=== PATIENT | male | born 1965 | race Caucasian/White ===

== ENCOUNTER 2016-08-28 10:45 | Emergency (ER) | payer BC ==
[2016-08-28 10:54] VITALS: BP 122/95
[2016-08-28] MEDS ORDERED: ALBUTEROL SULFATE/IPRATROPIUM 3 ML NEBU IH ONE ×2 (11:23→11:36)
--- NOTE | 2016-08-28 11:30 | ERNOTE ---
Date of Service: 08/28/16 Time Seen by Provider: 08/28/16 11:13 Stated Complaint: COUGH Presenting Symptoms:: cough Source: patient, family, RN notes reviewed Exam Limitations: no limitations Immunizations: IMMUNIZATION HX Immunizations Up to Date No History of Influenza Vaccine More Information Required Hx Pneumococcal Vaccination More Information Required Allergies/Adverse Reactions: Allergies No Known Allergies Allergy (Unverified 04/05/14 14:45) Home Medications: HOME MEDICATIONS Aspirin [Aspirin Enteric Coated] 81 mg PO DAILY 04/05/14 [Last Taken Unknown] Atorvastatin Calcium [Lipitor] 20 mg PO DAILY 04/05/14 [Last Taken Unknown] Glucosamine HCl 500 mg PO DAILY 04/05/14 [Last Taken Unknown] Lisinopril/Hydrochlorothiazide [Lisinopril-Hctz 20-12.5 mg Tab] 1 each PO DAILY 04/05/14 [Last Taken Unknown] Zolpidem Tartrate [Ambien] 10 mg PO HS PRN 04/05/14 [Last Taken Unknown] traMADol HCL [Ultram] 50 mg PO Q6H PRN 04/05/14 [Last Taken Unknown] Promethazine HCl/Codeine [Prometh-Codein 6.25-10 mg/5 ml] 5 ml PO Q4H PRN #120 ml 08/28/16 [Last Taken Unknown] - History of Present Ilness Narrative: 51 y/o male brought to the ED by his for a cough and shortness of breath that began 2 or 3 days ago. He was seen elsewhere for a cough and treated with a ZPack 3 weeks ago. His symptoms improved. He is a long time smoker. He has never been diagnosed with COPD. He has not taken anything for his symptoms today. He is also reporting pain in his feet. This has been ongoing for quite some time. He takes Tramadol for this and reports that it is not working. He is concerned this is related to a circulation problem. Frequency/Possible Cause: Reports: unknown cause Modifying Factors - Improves: Reports: rest Modifying Factors - Worsens: Reports: activity, lying down Associated Symptoms: Reports: cough, shortness of breath, nasal congestion, nasal drainage, headache, sore throat. Denies: wheezing, facial pain, earache, muscle aches, fever/chills Review of Systems - Review of Systems Constitutional: Present: recent illness, diaphoresis, fatigue, malaise. Absent : fever, chills EYE: Present: no symptoms reported ENT: Present: See HPI Respiratory: Present: See HPI Cardiology: Present: edema. Absent: chest pain Gastrointestinal/Abdominal: Absent: nausea, vomiting, abdominal pain Genitourinary: Present: no symptoms reported Musculoskeletal: Present: See HPI Skin: Present: no symptoms reported Neurological: Present: See HPI Endocrine: Present: no symptoms reported Hematologic/Lymphatic: Present: no symptoms reported Psych: Present: no symptoms reported - Patient's Past Medical History Patient History - Medical: Alcohol Abuse, Obesity Patient History - Cardiac/Respiratory: Hypertension, Hyperlipidemia, CPAP/BiPAP Home Use, Sleep Apnea Patient History - Cancer: No Hx of Cancer Patient History - Surgical Procedures: Colonoscopy, Other - Knee, FATUMA - Social History Living Situations: spouse Psych History: No pertinent hx Smoking Status: Current every day smoker Cigarettes Packs Per Day: 1 Have you smoked in the past 12 months: Yes Do you dip or chew tobacco: No Patient requests Smoking Cessation Consult: No Initiate information on Smoking Cessation: No Alcohol Use: heavy Drug Use: none - Immunizations Immunizations Up to Date: No Hx Pneumococcal Vaccination: More Information Required to Determine History of Influenza Vaccine: Yes Physical Exam - Physical Exam General Appearance: Present: wd/wn, alert, no apparent distress, obese Eye Exam: Normal inspection: bilateral Ears, Nose, Throat: Present: hearing grossly normal, nasal congestion, pharyngeal erythema, pharyngeal swelling. Absent: abnormal TM (R), abnormal TM (L), sinus pain/drainage, tonsillar exudate, tonsillar swelling Neck: Present: normal inspection, nontender, supple Respiratory: Present: no respiratory distress, no accessory muscle use, expiration (prolonged), wheezing - mild Cardiovascular/Chest: Present: regular rate, rhythm, no murmur, normal peripheral pulses Extremity Exam: Present: non-tender, normal range of motion, extremity edema - trace edema to ankles, slight discoloration consistent with venous stasis Neurological Exam: Present: alert, oriented, normal mood/affect, no motor/ sensory deficits Skin Exam: Present: normal color, warm/dry ED Progress - Results and Orders Patient's Lab Results:: I have reviewed the patient's lab results. - Vital Signs Patient's Vital Signs:: I have reviewed the patient's vital signs. Vital Signs: Vital Signs 08/28/16 10:49 Temperature 35.9 C L Pulse Rate 98 Respiratory 16 Rate Blood Pressure 122/95 O2 Sat by Pulse 97 Oximetry - X-Ray X-Ray #1 X-Ray: chest Interpretation: Reviewed by me X-ray Comments: TWO VIEW CHEST Comparison: NONE Technique: Upright frontal and lateral views of the chest were obtained. Findings: The cardiac silhouette is within normal limits of size. There is evidence of prior granulomatous disease within the hilum and lung haddad. The mediastinum and hilum are with in normal limits. The lung haddad are clear. I do not see evidence for an infiltrate, effusion, or pulmonary edema. I do not see evidence for definable acute osseous abnormality on this chest x-ray. IMPRESSION: 1. NO ACUTE CARDIOPULMONARY PROCESS. Electronically signed by Miguelangel Fontanez M.D.. - Progress/Reassessment Chief Complaint: Cough Progress:: Improved Plan - Plan Plan: Reports slight improvement in cough after Duoneb. Requests something for his foot pain, also continues to have headache. Toradol and Phenergan ordered IM. No indication of any bacterial process on labs or xray - symptoms are likely viral URI, discussed symptomatic treatment. Recommended podiatry eval for chronic foot pain. Departure - Departure Clinical Impression: Upper respiratory infection, viral Chronic foot pain Qualifiers: Laterality: unspecified laterality Qualified Code(s): M79.673 - Pain in unspecified foot; G89.29 - Other chronic pain Disposition: Home Follow Up Needed Condition: Stable Instructions: Upper Respiratory Infection, Adult, [id number], Form - Excuse from Work, School, or Physical Activity Additional Instructions: Increase WATER intake, decrease ALCOHOL intake Tylenol and/or ibuprofen for pain/fever Rest Referrals: Guero Curtis DO [Primary Care Provider] - Prescriptions: Promethazine HCl/Codeine [Prometh-Codein 6.25-10 mg/5 ml] 5 ml PO Q4H PRN #120 ml PRN Reason: Cough
[2016-08-28 11:36] LABS: Hematocrit 40.4 % (42.0-52.0); Hemoglobin 14.1 gm/dL (13.5-18.0); Mean Cell Volume 94.6 fl (78-100); Mean Corpuscular Hgb Conc 34.9 g/dl (32-36); Neutrophil # 4.6 K/mm3 (1.3-6.0); Neutrophil % 70.7 % (42-75.0); Platelet Count 142 K/mm3 (150-450); Red Blood Count 4.27 M/mm3 (4.7-6.0); Red Cell Distribution Width 12.2 % (11.5-14.0); White Blood Count 6.5 K/mm3 (4.0-10.5)
[2016-08-28 11:51] LABS: Albumin * 3.5 gm/dl (3.4-5.0); Anion Gap 16.8 mmol/L (6.8-13.8); BUN/Creatinine Ratio 8.5 (9.0-21.6); Bilirubin, Total 0.4 mg/dL (0.0-1.1); Ca. Corrected For Albumin 9.2 mg/dL (8.4-10.2); Calcium * 9.1 mg/dL (7.9-10.9); Carbon Dioxide 25.9 mmol/L (24-32.6); Potassium 3.7 mmol/L (3.4-4.6); Total Protein 7.3 gm/dL (6.2-8.2)
[2016-08-28] MEDS ORDERED: PROMETHAZINE HCL 25 MG/ML AMPUL IM ONE (12:43)
[2016-08-28] MEDS ORDERED: KETOROLAC TROMETHAMINE 60 MG/2 ML VIAL IM ONE ×2 (12:43→13:05)
[2016-08-28] MEDS ORDERED: PROMETHAZINE HCL 25 MG/ML AMPUL ONE (13:05)
== END 2016-08-28 13:21 | disposition home or self-care (01) ==
LOC: ER 10:45
DX: J06.9 Acute upper respiratory infection, unspecified (principal); G89.29 Other chronic pain; M79.672 Pain in left foot; M79.671 Pain in right foot; I10 Essential (primary) hypertension; F17.210 Nicotine dependence, cigarettes, uncomplicated